=== PATIENT | male | born 1985 | race Caucasian/White ===

== ENCOUNTER 2020-04-16 18:16 | Emergency (ER) | payer BC, SELFPAY ==
[2020-04-16 18:19] VITALS: BP 143/80; PULSE 106; RESP 16; TEMP 36.7; O2SAT 100
[2020-04-16 18:37] VITALS: BP 139/89; PULSE 85; RESP 18; O2SAT 100
[2020-04-16 18:44] LABS: Basophils Percent Auto 0.6 % (0.2-1.2); Eosinophils Absolute Auto 0.1 K/mm3 (0-0.3); Eosinophils Percent Auto 2.2 % (0-4.4); Hematocrit 43.3 % (42.0-52.0); Immature Granulocyte Absolute 0.01 K/mm3 (0.00-0.031); Immature Granulocyte Percent A 0.2 % (0-0.5); Lymphocytes Absolute Auto 2.03 K/mm3 (0.9-3.2); Lymphocytes Percent Auto 31.4 % (18.3-44.2); Mean Corpuscular HGB Conc 34.6 g/dl (32-36); Mean Corpuscular Hemoglobin 28.2 pg (26-34); Mean Corpuscular Volume 81.5 fl (80-100); Mean Platelet Volume 9.4 fl (7.4-10.4); Monocytes Absolute Auto 0.6 K/mm3 (0.1-0.6); Monocytes Percent Auto 8.5 % (2.6-8.5); Neutrophils Absolute Auto 3.7 K/mm3 (1.3-6.7); Neutrophils Percent Auto 57.1 % (45.5-73.1); Platelet Count Result 196 k/mm3 (150-375); Red Blood Count 5.31 M/mm3 (4.6-6.20); Red Cell Distribution Width 12.9 % (11.5-14.5); White Blood Count 6.5 K/mm3 (4.5-10.0)
--- NOTE | 2020-04-16 18:56 | ED.GENADULT ---
HPI - General Adult General Chief complaint: Abdominal Pain Stated complaint: pelvic pain Time Seen by Provider: 04/16/20 18:30 Source: patient Mode of arrival: ambulatory Limitations: no limitations History of Present Illness HPI narrative: Patient is a 35-year-old male who presents with suprapubic discomfort for the last 2 days noting aching pain that does not radiate possibly worse with urination denies similar occurrence in the past or any concern for STD patient has not taken anything for his symptoms and on arrival is in the room in no distress and does not appear uncomfortable Review of Systems Review of Systems: All systems reviewed & are unremarkable except as noted in HPI and below PMFSH Social History Social History (Updated 04/16/20 @ 18:56 by Edward Loredo PA-C) Smoking status: Never smoker Exam Narrative: Exam Narrative: GENERAL: Well-appearing, well-nourished, and in no acute distress. HEAD: Normocephalic, atraumatic. EYES: PERRLA and EOMI. CHEST: Clear to auscultation. No respiratory distress. No wheezes rales or rhonchi HEART: Regular rate and rhythm. No murmur heard. Normal peripheral pulses. ABDOMEN: Soft, mild suprapubic tenderness remainder of abdomen nontender, nondistended EXTREMITIES: Normal range of motion. No edema. SKIN: Warm, dry, no rash. NEURO: No focal deficits. Alert and oriented x3. PSYCH: Normal mood and affect. Course Course Emergency Course: Patient in the room in no distress aware of case findings treatment plan and diagnosis patient with minimal discomfort on palpation of the abdomen no high risk changes in the blood work or imaging patient will be discharged home provided with reasons to return patient agrees with this plan Vital Signs Vital signs: Vital Signs Temperature 98.0 F 04/16/20 18:19 Pulse Rate 106 H 04/16/20 18:19 Respiratory Rate 16 04/16/20 18:19 Blood Pressure 143/80 H 04/16/20 18:19 Pulse Oximetry 100 04/16/20 18:19 Temperature 98.0 F 04/16/20 18:19 Pulse Rate 85 04/16/20 18:37 Respiratory Rate 18 04/16/20 18:37 Blood Pressure 139/89 04/16/20 18:37 Pulse Oximetry 100 04/16/20 18:37 Medical Decision Making MDM Narrative Medical decision making narrative: Patient in the room no distress no high risk changes in the evaluation resting comfortably felt appropriate for outpatient reevaluation patient notes that he thinks he may have strained the muscles having intercourse patient provided with reasons to return if symptoms worsen or concerns Vital Signs Vital Signs: Vital Signs Temperature 98.0 F 04/16/20 18:19 Pulse Rate 106 H 04/16/20 18:19 Respiratory Rate 16 04/16/20 18:19 Blood Pressure 143/80 H 04/16/20 18:19 Pulse Oximetry 100 04/16/20 18:19 Temperature 98.0 F 04/16/20 18:19 Pulse Rate 85 04/16/20 18:37 Respiratory Rate 18 04/16/20 18:37 Blood Pressure 139/89 04/16/20 18:37 Pulse Oximetry 100 04/16/20 18:37 Lab Data Result diagrams: 04/16/20 18:39 04/16/20 18:39 Labs: Lab Results 04/16/20 04/16/20 04/16/20 Range/Units 18:39 18:39 19:33 WBC 6.5 (4.5-10.0) K/mm3 RBC 5.31 (4.6-6.20) M/mm3 Hgb 15.0 (14.0-18.0) g/dL Hct 43.3 (42.0-52.0) % MCV 81.5 (80-100) fl MCH 28.2 (26-34) pg MCHC 34.6 (32-36) g/dl RDW 12.9 (11.5-14.5) % Plt Count 196 (150-375) k/mm3 MPV 9.4 (7.4-10.4) fl Immature Gran % (Auto) 0.2 (0-0.5) % Neut % (Auto) 57.1 (45.5-73.1) % Lymph % (Auto) 31.4 (18.3-44.2) % [place] % (Auto) 8.5 (2.6-8.5) % Eos % (Auto) 2.2 (0-4.4) % Baso % (Auto) 0.6 (0.2-1.2) % Lymph # (Auto) 2.03 (0.9-3.2) K/mm3 [place] # (Auto) 0.6 (0.1-0.6) K/mm3 Eos # (Auto) 0.1 (0-0.3) K/mm3 Baso # (Auto) 0.0 (0.0-0.1) K/mm3 Abs Immat Gran (auto) 0.01 (0.00-0.031) K/mm3 Absolute Neuts (auto) 3.7 (1.3-6.7) K/mm3 Absolute Nucleated RBC 0.0 (0.0-0.012) K/mm3 Nuc
[2020-04-16 19:06] LABS: Alanine Aminotransferase 20 U/L (4-50); Albumin Level 4.4 g/dL (3.5-5.1); Alkaline Phosphatase 52 U/L (38-126); Anion Gap 5 mmol/L (8-16); Aspartate Amino Transferase 24 U/L (17-59); Bilirubin,Total 0.5 mg/dL (0.2-1.3); Blood Urea Nitrogen 12 mg/dL (9-20); Calcium 9.1 mg/dL (8.4-10.2); Carbon Dioxide 32 mmol/L (22-30); Chloride 103 mmol/L (98-107); Estimated CRCL calculation 85 ml/min; Estimated Glomerular Filt Rate > 60; Glucose 109 mg/dL (75-110); Lipase 53 U/L (23-300); Potassium 3.6 mmol/L (3.4-5.0); Sodium 140 mmol/L (137-145)
[2020-04-16 19:41] LABS: Add Urine Microscopic? NO; Appearance Urine Clear (Clear); Bilirubin Urine Negative (Negative); Blood Urine Negative (Negative); Color Urine Straw (Yellow); Glucose Urine UA Negative (Negative); Ketones Urine Negative (Negative); Leukocyte Esterase Ur Negative LEU/UL (Negative); Nitrate Urine Negative (Negative); Protein Urine Negative (Negative); Specific Grav Ur 1.013 (1.001-1.035); Urobilinogen Urine Negative mg/dL (<2.0)
[2020-04-16 20:21] VITALS: BP 139/89; PULSE 93; RESP 19
== END 2020-04-16 20:22 | disposition home or self-care (01) ==
PROVIDERS: Emergency Medicine Emergency Medical Services; Emergency Provider Emergency Medicine
DX: R10.2 Pelvic and perineal pain (principal)
CPT/HCPCS: 36415; 80053; 81003; 83690; 85025; 99283